=== PATIENT | female | born 1960 | race Caucasian/White ===

== ENCOUNTER 2016-10-28 18:41 | Inpatient (IN) | payer MEDICAID ==
[~2016-10-28] VITALS: Ht 160 cm; Wt 128.4 kg
[~2016-10-28 18:41] MED LIST: ALBU6.7H IH; FLUT1DIS IH
[2016-10-28] MEDS ORDERED: METHYLPREDNISOLONE SOD SUCC 125 MG/2 ML VIAL IV STA (21:16)
[2016-10-28] MEDS ORDERED: ALBUTEROL (0.083%) 2.5MG/3ML NEB HHN STA (21:16)
[2016-10-28] MEDS ORDERED: IPRATROPIUM BROMIDE (0.02%) 0.5MG/2.5ML NEB HHN STA (21:16)
[2016-10-28] MEDS ORDERED: MAGNESIUM 2 G PREMIX 50 ML IV ONE (21:30)
[2016-10-28 21:37] LABS: BASOPHILS % 0.5 % (0.0-2.0); HEMATOCRIT. 32.2 % (36.0-48.0); HEMOGLOBIN. 10.7 g/dL (12.0-16.0); LYMPHOCYTES % 23.8 % (20.0-50.0); MEAN CORPUSCULAR HEMOGLOBIN 26.8 pg (28.0-32.0); MEAN CORPUSCULAR VOLUME 81.1 fL (81.0-99.0); MEAN PLATELET VOLUME 7.8 fl (7.4-10.4); MONOCYTES % 8.7 % (2.0-8.0); PLATELET 217 x1000/uL (130-400); RED BLOOD CELL COUNT 3.98 mill/uL (4.2-5.4); RED CELL DISTRIBUTION WIDTH 14.4 % (11.6-14.6)
[2016-10-28 21:48] LABS: CARBON DIOXIDE 28 mEq/L (21-32); CHLORIDE 110 mEq/L (98-107)
[2016-10-28 21:53] LABS: D-DIMER 0.69 mg/L FEU (<0.50); PROTHROMBIN TIME 10.7 sec
[2016-10-28 21:55] LABS: TROPONIN I < 0.02 ng/mL (0.00-0.04)
[2016-10-28] MEDS ORDERED: NITROGLYCERIN OINT 1GM/INCH UDPKT TD ONE (22:45)
[2016-10-28] MEDS ORDERED: FUROSEMIDE 20MG/2ML VIAL IVP ONE (22:45)
[2016-10-28] MEDS ORDERED: LEVOFLOXACIN 500MG PREMIX 100 ML IV ONE (23:30)
[2016-10-29 09:48] LABS: BASOPHILS % 0.2 % (0.0-2.0); HEMATOCRIT. 32.7 % (36.0-48.0); HEMOGLOBIN. 11.1 g/dL (12.0-16.0); LYMPHOCYTES % 9.5 % (20.0-50.0); MEAN CORPUSCULAR HEMOGLOBIN 27.3 pg (28.0-32.0); MEAN CORPUSCULAR VOLUME 80.2 fL (81.0-99.0); MEAN PLATELET VOLUME 7.7 fl (7.4-10.4); MONOCYTES % 1.2 % (2.0-8.0); NEUTROPHILS % 89.1 % (40.0-76.0); PLATELET 222 x1000/uL (130-400); RED BLOOD CELL COUNT 4.07 mill/uL (4.2-5.4); RED CELL DISTRIBUTION WIDTH 14.3 % (11.6-14.6)
[2016-10-29 10:00] VITALS: BP 138/76
[2016-10-29 10:03] LABS: CARBON DIOXIDE 27 mEq/L (21-32); CHLORIDE 107 mEq/L (98-107); HDL CHOLESTEROL 81 mg/dL (40-59); LDL CHOLESTEROL 104 mg/dL (5-100)
[2016-10-29] MEDS ORDERED: IPRATROPIUM/ALBUTEROL 0.5-3(2.5)MG/3ML NEB INH PRN (10:30)
[2016-10-29] MEDS ORDERED: ONDANSETRON HCL 4MG/2ML VIAL IV PRN (10:30)
[2016-10-29] MEDS ORDERED: CLONIDINE 0.1MG TABLET PO PRN (10:30)
[2016-10-29] MEDS ORDERED: ENOXAPARIN 40MG/0.4ML SYR SUBCUT SCH (10:30)
[2016-10-29] MEDS ORDERED: MAGNESIUM/ALUMINUM HYDROXIDE/SIMETHICONE 30ML UDC PO PRN (10:30)
[2016-10-29] MEDS ORDERED: DOCUSATE SODIUM 100MG CAPSULE PO PRN (10:30)
[2016-10-29] MEDS ORDERED: ASPIRIN 81MG EC TABLET PO ONE (11:00)
[2016-10-29] MEDS ORDERED: PRAV40TA58 PO (11:44)
[2016-10-29] MEDS ORDERED: SITA1TAB8 PO (11:44)
[2016-10-29] MEDS ORDERED: GLIP10TA10 PO (11:44)
[2016-10-29] MEDS ORDERED: MOME13HF2 INH (11:44)
[2016-10-29] MEDS ORDERED: HYDR200T35 PO (11:44)
[2016-10-29] MEDS ORDERED: ASPI-1159 PO (11:44)
[2016-10-29] MEDS ORDERED: MEDICATION NOT ON FORMULARY EA (Mometasone/Formoterol (Dulera 100 Mcg/5 Mcg Inhaler) 2 P INH SCH (11:45)
[2016-10-29 12:03] LABS: CREATINE KINASE 95 IU/L (26-192); TROPONIN I < 0.02 ng/mL (0.00-0.04)
[2016-10-29] MEDS: BLOOD SUGAR DIAGNOSTIC STRIP TEST SCH ×3 (12:04→21:39)
[2016-10-29] MEDS: ASPIRIN 81MG EC TABLET PO SCH (12:06)
[2016-10-29] MEDS: ACETAMINOPHEN 325MG TABLET PO PRN (12:06)
[2016-10-29] MEDS: AMLODIPINE 5MG TABLET PO SCH ×2 (12:06→21:32)
[2016-10-29] MEDS: LISINOPRIL 5MG TABLET PO SCH (12:06)
[2016-10-29] MEDS: ENOXAPARIN 40MG/0.4ML SYR SUBCUT SCH ×2 (12:08→21:32)
[2016-10-29] MEDS: LINAGLIPTIN 5MG TABLET PO SCH (13:01)
[2016-10-29] MEDS: HYDROXYCHLOROQUINE SULFATE 200MG TABLET PO SCH (13:01)
[2016-10-29] MEDS: INSULIN LISPRO 100 UNITS/ML SUBCUT SCH ×3 (13:04→21:00)
[2016-10-29] MEDS: IPRATROPIUM/ALBUTEROL 0.5-3(2.5)MG/3ML NEB INH SCH ×2 (14:32→21:13)
[2016-10-29 15:43] LABS: CREATINE KINASE 95 IU/L (26-192)
[2016-10-29 15:54] VITALS: BP 142/88
[2016-10-29] MEDS: FUROSEMIDE 40MG/4ML VIAL IV SCH (18:07)
[2016-10-29] MEDS: METFORMIN HCL 500MG TABLET PO SCH (18:07)
[2016-10-29] MEDS: GLIPIZIDE 10MG TABLET PO SCH (18:08)
[2016-10-29 20:00] VITALS: BP 122/68
[2016-10-29] MEDS ORDERED: MEDICATION NOT ON FORMULARY EA (Pravastatin Sodium 40 MG) PO SCH (21:00)
[2016-10-29] MEDS: ATORVASTATIN CALCIUM 10MG TABLET PO SCH (21:31)
[2016-10-30] VITALS: BP 108/61
[2016-10-30 00:06] LABS: CREATINE KINASE 157 IU/L (26-192); TROPONIN I < 0.02 ng/mL (0.00-0.04)
[2016-10-30] MEDS: IPRATROPIUM/ALBUTEROL 0.5-3(2.5)MG/3ML NEB INH SCH ×4 (01:01→21:35)
[2016-10-30 04:00] VITALS: BP 106/65
[2016-10-30 04:43] LABS: *AMPHETAMINES SCREEN URINE NEGATIVE (NEGATIVE); *BARBITURATES SCREEN URINE NEGATIVE (NEGATIVE); *BENZODIAZEPINES SCREEN URINE NEGATIVE (NEGATIVE); *COCAINE SCREEN URINE NEGATIVE (NEGATIVE); CANNABINOID URINE SCREEN NEGATIVE (NEGATIVE); METHADONE URINE SCREEN NEGATIVE (NEGATIVE); OPIATES URINE SCREEN NEGATIVE (NEGATIVE); PHENCYCLIDINE URINE SCREEN NEGATIVE (NEGATIVE)
[2016-10-30 05:33] LABS: BASOPHILS % 0.4 % (0.0-2.0); EOSINOPHILS % 0.2 % (0.0-5.0); HEMATOCRIT. 32.4 % (36.0-48.0); HEMOGLOBIN. 10.7 g/dL (12.0-16.0); LYMPHOCYTES % 20.6 % (20.0-50.0); MEAN CORPUSCULAR HEMOGLOBIN 26.9 pg (28.0-32.0); MEAN CORPUSCULAR VOLUME 81.2 fL (81.0-99.0); MEAN PLATELET VOLUME 8.5 fl (7.4-10.4); MONOCYTES % 10.4 % (2.0-8.0); NEUTROPHILS % 68.4 % (40.0-76.0); PLATELET 232 x1000/uL (130-400); RED BLOOD CELL COUNT 3.99 mill/uL (4.2-5.4); RED CELL DISTRIBUTION WIDTH 14.7 % (11.6-14.6)
[2016-10-30 06:05] LABS: CARBON DIOXIDE 26 mEq/L (21-32); CHLORIDE 106 mEq/L (98-107)
[2016-10-30 06:10] LABS: TROPONIN I < 0.02 ng/mL (0.00-0.04)
[2016-10-30] MEDS: BLOOD SUGAR DIAGNOSTIC STRIP TEST SCH ×5 (07:13→20:30)
[2016-10-30] MEDS: INSULIN LISPRO 100 UNITS/ML SUBCUT SCH ×4 (07:15→20:30)
[2016-10-30 08:00] VITALS: BP 112/67
[2016-10-30] MEDS: AMLODIPINE 5MG TABLET PO SCH ×2 (08:13→20:47)
[2016-10-30] MEDS: METFORMIN HCL 500MG TABLET PO SCH ×2 (08:21→19:28)
[2016-10-30] MEDS: GLIPIZIDE 10MG TABLET PO SCH ×2 (08:21→19:28)
[2016-10-30] MEDS: LINAGLIPTIN 5MG TABLET PO SCH (08:21)
[2016-10-30] MEDS: ASPIRIN 81MG EC TABLET PO SCH (08:22)
[2016-10-30] MEDS: LISINOPRIL 5MG TABLET PO SCH (08:22)
[2016-10-30] MEDS: FUROSEMIDE 40MG/4ML VIAL IV SCH (08:22)
[2016-10-30] MEDS: ENOXAPARIN 40MG/0.4ML SYR SUBCUT SCH ×2 (08:24→20:46)
[2016-10-30] MEDS: HYDROXYCHLOROQUINE SULFATE 200MG TABLET PO SCH (08:24)
[2016-10-30] MEDS ORDERED: ASPIRIN 81MG EC TABLET PO SCH (09:00)
[2016-10-30 12:50] VITALS: BP 123/73
[2016-10-30 16:00] VITALS: BP 133/75
[2016-10-30] MEDS ORDERED: POTASSIUM CHLORIDE 20MEQ TABLET SR PO NR (16:00)
[2016-10-30] MEDS: LEVOTHYROXINE SODIUM 25MCG TABLET PO SCH (16:21)
[2016-10-30 20:00] VITALS: BP 135/80
[2016-10-30] MEDS: ATORVASTATIN CALCIUM 10MG TABLET PO SCH (20:47)
[2016-10-31] VITALS (7 sets, daily range): BP systolic 98–160; BP diastolic 54–108
[2016-10-31] MEDS: IPRATROPIUM/ALBUTEROL 0.5-3(2.5)MG/3ML NEB INH SCH ×4 (03:12→20:59)
[2016-10-31] MEDS: ACETAMINOPHEN 325MG TABLET PO PRN (03:18)
[2016-10-31] MEDS ORDERED: POTASSIUM CHLORIDE 20MEQ TABLET SR PO NR (06:00)
[2016-10-31] MEDS: LEVOTHYROXINE SODIUM 25MCG TABLET PO SCH (06:02)
[2016-10-31] MEDS: BLOOD SUGAR DIAGNOSTIC STRIP TEST SCH ×4 (06:03→20:27)
[2016-10-31] MEDS: INSULIN LISPRO 100 UNITS/ML SUBCUT SCH ×4 (06:03→20:27)
[2016-10-31] MEDS: DEXTROSE 50% WATER 50ML SYRINGE IV PRN (06:03)
[2016-10-31 06:05] LABS: BASOPHILS % 0.6 % (0.0-2.0); EOSINOPHILS % 1.4 % (0.0-5.0); HEMATOCRIT. 32.9 % (36.0-48.0); HEMOGLOBIN. 10.9 g/dL (12.0-16.0); LYMPHOCYTES % 35.1 % (20.0-50.0); MEAN CORPUSCULAR HEMOGLOBIN 26.7 pg (28.0-32.0); MEAN CORPUSCULAR VOLUME 80.9 fL (81.0-99.0); MEAN PLATELET VOLUME 8.1 fl (7.4-10.4); MONOCYTES % 12.7 % (2.0-8.0); NEUTROPHILS % 50.2 % (40.0-76.0); PLATELET 234 x1000/uL (130-400); RED BLOOD CELL COUNT 4.07 mill/uL (4.2-5.4); RED CELL DISTRIBUTION WIDTH 14.5 % (11.6-14.6)
[2016-10-31 06:34] LABS: CARBON DIOXIDE 27 mEq/L (21-32); CHLORIDE 108 mEq/L (98-107)
[2016-10-31 06:35] LABS: T4 FREE 1.05 ng/dL (0.76-1.46)
[2016-10-31] MEDS: METFORMIN HCL 500MG TABLET PO SCH ×2 (08:18→18:12)
[2016-10-31] MEDS: LINAGLIPTIN 5MG TABLET PO SCH (08:19)
[2016-10-31] MEDS: AMLODIPINE 5MG TABLET PO SCH ×2 (08:31→20:27)
[2016-10-31] MEDS: ASPIRIN 81MG EC TABLET PO SCH (08:31)
[2016-10-31] MEDS: LISINOPRIL 5MG TABLET PO SCH (08:31)
[2016-10-31] MEDS: GLIPIZIDE 10MG TABLET PO SCH (08:31)
[2016-10-31] MEDS: HYDROXYCHLOROQUINE SULFATE 200MG TABLET PO SCH (08:31)
[2016-10-31] MEDS: ENOXAPARIN 40MG/0.4ML SYR SUBCUT SCH ×2 (08:32→20:32)
[2016-10-31] MEDS ORDERED: REGADENOSON 0.4 MG/5 ML IV ONE (13:45)
[2016-10-31] MEDS: GLIPIZIDE 5MG TABLET PO SCH (18:11)
[2016-10-31] MEDS: ATORVASTATIN CALCIUM 10MG TABLET PO SCH (20:32)
[2016-11-01] VITALS: BP 103/59
[2016-11-01] MEDS: IPRATROPIUM/ALBUTEROL 0.5-3(2.5)MG/3ML NEB INH SCH ×3 (02:33→14:26)
[2016-11-01 04:00] VITALS: BP 103/58
[2016-11-01] MEDS: DEXTROSE 50% WATER 50ML SYRINGE IV PRN (06:02)
[2016-11-01] MEDS: BLOOD SUGAR DIAGNOSTIC STRIP TEST SCH ×3 (06:03→16:30)
[2016-11-01] MEDS: GLIPIZIDE 5MG TABLET PO SCH (06:03)
[2016-11-01] MEDS: LEVOTHYROXINE SODIUM 25MCG TABLET PO SCH (06:03)
[2016-11-01] MEDS: INSULIN LISPRO 100 UNITS/ML SUBCUT SCH ×3 (06:07→16:30)
[2016-11-01] MEDS: METFORMIN HCL 500MG TABLET PO SCH ×2 (07:15→17:22)
[2016-11-01 08:00] VITALS: BP 144/77
[2016-11-01] MEDS ORDERED: REGADENOSON 0.4 MG/5 ML IV ONE (08:35)
[2016-11-01] MEDS: LINAGLIPTIN 5MG TABLET PO SCH (09:00)
[2016-11-01] MEDS: ENOXAPARIN 40MG/0.4ML SYR SUBCUT SCH (11:19)
[2016-11-01] MEDS: AMLODIPINE 5MG TABLET PO SCH (11:19)
[2016-11-01] MEDS: HYDROXYCHLOROQUINE SULFATE 200MG TABLET PO SCH (11:19)
[2016-11-01] MEDS: ASPIRIN 81MG EC TABLET PO SCH (11:19)
[2016-11-01 12:00] VITALS: BP 141/74
[2016-11-01] MEDS ORDERED: AMLO5TAB88 PO (12:22)
[2016-11-01 16:00] VITALS: BP 120/71
[2016-11-01 16:58] VITALS: BP 120/71
[2016-11-02 07:22] LABS: COMPLEMENT C3 38 mg/dL (82-167)
== END 2016-11-01 18:00 | disposition home or self-care (01) | DRG 141 ==
LOC: ER 21:08 → 5WST 23:26 → EDBEDREQ 23:28 → EDBEDREQTM 23:28 → EDBEDREQ 10-29 05:17 → ENRESERV 10-29 09:14
PROVIDERS: ADMIT Internal Medicine; ATTEND Internal Medicine
DX: J45.901 Unspecified asthma with (acute) exacerbation (principal); I27.2 Other secondary pulmonary hypertension; I11.0 Hypertensive heart disease with heart failure; M32.9 Systemic lupus erythematosus, unspecified; Z68.43 Body mass index [BMI] 50.0-59.9, adult; I50.9 Heart failure, unspecified; E11.9 Type 2 diabetes mellitus without complications; E66.01 Morbid (severe) obesity due to excess calories; H53.8 Other visual disturbances; D64.9 Anemia, unspecified; E03.9 Hypothyroidism, unspecified; E78.00 Pure hypercholesterolemia, unspecified; E78.5 Hyperlipidemia, unspecified; J98.11 Atelectasis; K59.00 Constipation, unspecified; Z79.84 Long term (current) use of oral hypoglycemic drugs; Z80.3 Family history of malignant neoplasm of breast; Z82.49 Family history of ischemic heart disease and other diseases of the circulatory system; Z79.899 Other long term (current) drug therapy; Z98.51 Tubal ligation status
CPT/HCPCS: 36415; 71010; 78452; 78582; 80048; 80053; 80061; 80305; 82550; 82553; 82962; 83036; 83605; 83690; 83735; 83880; 84439; 84443; 84484; 85025; 85379; 85610; 85651; 86160; 86376; 87040; 93005; 93017; 93306; 93970; 94640; 94664; 96365; 96367; 96375; 97162; 99285; A9500; A9558; J1650; J1815; J1940; J1956; J2785; J2930; J3475; J7611; J7620

== ENCOUNTER 2017-12-19 22:04 | Emergency (ER) | payer MEDICAID ==
[~2017-12-19] VITALS: Ht 167.6 cm; Wt 127.0 kg
[~2017-12-19 22:04] MED LIST changes: +AMLO5TAB88 PO; +ASPI-1159 PO; +GLIP10TA10 PO; +HYDR200T35 PO; +MOME13HF2 INH; +PRAV40TA58 PO; +SITA1TAB8 PO
[2017-12-20] MEDS ORDERED: HYDROCODONE/ACETAMINOPHEN 5/325MG TABLET PO ONE (00:30)
[2017-12-20 02:20] VITALS: BP 120/82
== END 2017-12-20 02:26 | disposition home or self-care (01) ==
LOC: ER 22:04
DX: S52.592A Other fractures of lower end of left radius, initial encounter for closed fracture (principal); W01.0XXA Fall on same level from slipping, tripping and stumbling without subsequent striking against object, initial encounter; Y93.89 Activity, other specified; Y92.89 Other specified places as the place of occurrence of the external cause; Y99.8 Other external cause status; Z90.710 Acquired absence of both cervix and uterus; Z90.49 Acquired absence of other specified parts of digestive tract; Z79.82 Long term (current) use of aspirin; Z79.899 Other long term (current) drug therapy
CPT/HCPCS: 29125; 73090; 73110; 73130; 99284; A4565

== ENCOUNTER 2018-03-25 12:44 | Inpatient (IN) | payer MEDICAID ==
[~2018-03-25] VITALS: Ht 160 cm; Wt 122.5 kg
[2018-03-25] MEDS ORDERED: ALBUTEROL (0.083%) 2.5MG/3ML NEB HHN STA (13:33)
[2018-03-25 14:07] LABS: BASOPHILS % 0.5 % (0.0-2.0); EOSINOPHILS % 0.6 % (0.0-5.0); HEMATOCRIT. 41.6 % (36.0-48.0); HEMOGLOBIN. 13.9 g/dL (12.0-16.0); LYMPHOCYTES % 25.7 % (20.0-50.0); MEAN CORPUSCULAR HEMOGLOBIN 27.4 pg (28.0-32.0); MEAN CORPUSCULAR VOLUME 81.9 fL (81.0-99.0); MEAN PLATELET VOLUME 7.7 fl (7.4-10.4); MONOCYTES % 7.8 % (2.0-8.0); NEUTROPHILS % 65.4 % (40.0-76.0); PLATELET 258 x1000/uL (130-400); RED BLOOD CELL COUNT 5.08 mill/uL (4.2-5.4); RED CELL DISTRIBUTION WIDTH 14.5 % (11.6-14.6)
[2018-03-25 14:13] LABS: CHLORIDE 103 mEq/L (98-107)
[2018-03-25] MEDS ORDERED: METHYLPREDNISOLONE SOD SUCC 125 MG/2 ML VIAL IV ONE (14:45)
[2018-03-25] MEDS ORDERED: DOCUSATE SODIUM 100MG CAPSULE PO PRN (18:30)
[2018-03-25] MEDS ORDERED: BUDESONIDE 0.5MG/2ML NEB HHN SCH (18:30)
[2018-03-25] MEDS ORDERED: IPRATROPIUM/ALBUTEROL 0.5-3(2.5)MG/3ML NEB INH SCH (18:30)
[2018-03-25] MEDS ORDERED: CLONIDINE 0.1MG TABLET PO PRN (18:30)
[2018-03-25] MEDS ORDERED: MAGNESIUM/ALUMINUM HYDROXIDE/SIMETHICONE 30ML UDC PO PRN (18:30)
[2018-03-25] MEDS ORDERED: ACETAMINOPHEN 325MG TABLET PO PRN (18:30)
[2018-03-25] MEDS ORDERED: ONDANSETRON HCL 4MG/2ML INJ IV PRN (18:30)
[2018-03-25] MEDS ORDERED: IPRATROPIUM/ALBUTEROL 0.5-3(2.5)MG/3ML NEB INH PRN (18:30)
[2018-03-25] MEDS ORDERED: GUAIFENESIN 200MG/10ML SUGAR FREE UDC PO PRN (18:30)
[2018-03-25] MEDS ORDERED: PANTOPRAZOLE 40MG DR TABLET PO SCH (21:00)
[2018-03-25] MEDS ORDERED: INSU100I24 SQ (21:39)
[2018-03-25] MEDS ORDERED: CHOL200010 MT (21:39)
[2018-03-25] MEDS ORDERED: OSEL75CA17 PO (21:39)
[2018-03-25] MEDS ORDERED: ALBU18HF2 IH (21:39)
[2018-03-25 21:42] VITALS: BP 165/79
[2018-03-25 21:44] VITALS: BP 165/79
[2018-03-25] MEDS ORDERED: DEXTROSE 50% WATER 50ML SYRINGE IV PRN (21:45)
[2018-03-25 22:02] LABS: BG BASE EXCESS -6.1 mmol/L (-2.0-2.0); BG CARBOXYHEMOGLOBIN 0.4 % (0.5-1.5); BG FRACTION INSPIRED OXYGEN 28; BG HCO3 ACT 16.7 mmol/L (22.0-26.0); BG METHEMOGLOBIN 0.2 % (0.0-1.5); BG OXYHEMOGLOBIN 94.4 % (94.0-97.0); BG PH 7.425 (7.350-7.450); BG PO2 79.4 mmHg (75.0-100.0); BG SAMPLE SITE RIGHT RADIAL; BG TOTAL HEMOGLOBIN 13.4 g/dL (12.0-18.0); BG VENT MODE NASAL CANNULA
[2018-03-25] MEDS: METHYLPREDNISOLONE SOD SUCC 40 MG/ML VIAL IV SCH (22:03)
[2018-03-25] MEDS: ENOXAPARIN 30MG/0.3ML SYR SUBCUT SCH (22:03)
[2018-03-25] MEDS: BLOOD SUGAR DIAGNOSTIC STRIP TEST SCH (22:04)
[2018-03-25] MEDS: INSULIN LISPRO 100 UNITS/ML SUBCUT SCH (22:04)
[2018-03-25 23:11] LABS: CHLORIDE 104 mEq/L (98-107)
[2018-03-25 23:21] LABS: CREATINE KINASE 68 IU/L (26-192)
[2018-03-25 23:23] LABS: CREATINE KINASE MB FRACTION < 1.0 ng/mL (0.5-3.6)
[2018-03-26] VITALS: BP 123/47
[2018-03-26] MEDS: IPRATROPIUM/ALBUTEROL 0.5-3(2.5)MG/3ML NEB INH SCH ×6 (00:20→20:59)
[2018-03-26] MEDS: BUDESONIDE 0.5MG/2ML NEB HHN SCH ×2 (00:20→16:00)
[2018-03-26 04:00] VITALS: BP 147/76
[2018-03-26 06:41] LABS: BASOPHILS % 0.4 % (0.0-2.0); HEMATOCRIT. 38.8 % (36.0-48.0); HEMOGLOBIN. 12.9 g/dL (12.0-16.0); LYMPHOCYTES % 27.7 % (20.0-50.0); MEAN CORPUSCULAR HEMOGLOBIN 27.4 pg (28.0-32.0); MEAN CORPUSCULAR VOLUME 82.2 fL (81.0-99.0); NEUTROPHILS % 66.9 % (40.0-76.0); PLATELET 251 x1000/uL (130-400); RED BLOOD CELL COUNT 4.72 mill/uL (4.2-5.4); RED CELL DISTRIBUTION WIDTH 14.5 % (11.6-14.6)
[2018-03-26] MEDS: METHYLPREDNISOLONE SOD SUCC 40 MG/ML VIAL IV SCH ×3 (06:51→20:37)
[2018-03-26 07:24] LABS: LDL CHOLESTEROL 109 mg/dL (5-100)
[2018-03-26 07:26] LABS: CREATINE KINASE 59 IU/L (26-192); HDL CHOLESTEROL 67 mg/dL (40-59)
[2018-03-26 07:27] LABS: CREATINE KINASE MB FRACTION < 1.0 ng/mL (0.5-3.6)
[2018-03-26] MEDS: BLOOD SUGAR DIAGNOSTIC STRIP TEST SCH ×4 (07:39→20:37)
[2018-03-26] MEDS: PANTOPRAZOLE 40MG DR TABLET PO SCH (07:39)
[2018-03-26] MEDS: INSULIN LISPRO 100 UNITS/ML SUBCUT SCH ×4 (07:40→20:44)
[2018-03-26 07:45] VITALS: BP 135/75
[2018-03-26 08:40] LABS: CLARITY URINE CLEAR (CLEAR); COLOR URINE DARK YELLOW (YELLOW); KETONES URINE 1+ (NEGATIVE); LEUKOCYTE ESTERASE URINE NEGATIVE (NEGATIVE); NITRITE URINE NEGATIVE (NEGATIVE); OCCULT BLOOD URINE NEGATIVE (NEGATIVE); PROTEIN URINE TRACE (NEGATIVE); SPECIFIC GRAVITY URINE 1.047 (1.005-1.030)
[2018-03-26] MEDS: ENOXAPARIN 30MG/0.3ML SYR SUBCUT SCH ×2 (08:52→20:37)
[2018-03-26 09:16] LABS: *AMPHETAMINES SCREEN URINE NEGATIVE (NEGATIVE); *BENZODIAZEPINES SCREEN URINE NEGATIVE (NEGATIVE); *COCAINE SCREEN URINE NEGATIVE (NEGATIVE); METHADONE URINE SCREEN NEGATIVE (NEGATIVE)
[2018-03-26 09:17] LABS: CANNABINOID URINE SCREEN NEGATIVE (NEGATIVE); OPIATES URINE SCREEN NEGATIVE (NEGATIVE); PHENCYCLIDINE URINE SCREEN NEGATIVE (NEGATIVE)
[2018-03-26 09:25] LABS: *BARBITURATES SCREEN URINE NEGATIVE (NEGATIVE)
[2018-03-26] MEDS ORDERED: INSULIN GLARGINE UD 100 UNITS/ML SYR SUBCUT SCH ×2 (11:00→22:00)
[2018-03-26] MEDS: AZITHROMYCIN 500 MG in DEXT 5% WATER 250 ML IV SCH (11:05)
[2018-03-26 11:49] VITALS: BP 126/72
[2018-03-26 15:38] VITALS: BP 163/74
[2018-03-26 19:45] VITALS: BP 140/80
[2018-03-26] MEDS: MONTELUKAST SODIUM 10MG TABLET PO SCH (20:37)
[2018-03-26] MEDS: AMLODIPINE 5MG TABLET PO SCH (21:54)
[2018-03-27 00:10] VITALS: BP 129/71
[2018-03-27] MEDS: IPRATROPIUM/ALBUTEROL 0.5-3(2.5)MG/3ML NEB INH SCH ×6 (01:30→20:47)
[2018-03-27 04:00] VITALS: BP 125/69
[2018-03-27] MEDS: BUDESONIDE 0.5MG/2ML NEB HHN SCH ×3 (05:30→20:47)
[2018-03-27] MEDS: METHYLPREDNISOLONE SOD SUCC 40 MG/ML VIAL IV SCH ×2 (05:47→19:06)
[2018-03-27] MEDS: BLOOD SUGAR DIAGNOSTIC STRIP TEST SCH ×2 (07:40→21:10)
[2018-03-27] MEDS ORDERED: GLIPIZIDE 5MG XL TABLET PO SCH (08:10)
[2018-03-27 08:14] VITALS: BP 112/49
[2018-03-27] MEDS: PANTOPRAZOLE 40MG DR TABLET PO SCH (09:00)
[2018-03-27] MEDS: AMLODIPINE 5MG TABLET PO SCH (09:01)
[2018-03-27] MEDS: ENOXAPARIN 30MG/0.3ML SYR SUBCUT SCH ×2 (09:02→21:19)
[2018-03-27] MEDS: INSULIN LISPRO 100 UNITS/ML SUBCUT SCH ×4 (09:05→21:18)
[2018-03-27] MEDS ORDERED: INSULIN GLARGINE UD 100 UNITS/ML SYR SUBCUT SCH (11:00)
[2018-03-27] MEDS: AZITHROMYCIN 500 MG in DEXT 5% WATER 250 ML IV SCH (11:36)
[2018-03-27 12:43] VITALS: BP 109/80
[2018-03-27 17:15] VITALS: BP 109/44
[2018-03-27 20:00] VITALS: BP 123/66
[2018-03-27] MEDS: INSULIN GLARGINE UD 100 UNITS/ML SYR SUBCUT SCH (21:18)
[2018-03-27] MEDS: GUAIFENESIN 600MG ER TABLET PO SCH (21:19)
[2018-03-27] MEDS: MONTELUKAST SODIUM 10MG TABLET PO SCH (21:19)
[2018-03-27] MEDS: FAMOTIDINE 20MG TABLET PO SCH (21:19)
[2018-03-28] VITALS: BP 132/78
[2018-03-28] MEDS: IPRATROPIUM/ALBUTEROL 0.5-3(2.5)MG/3ML NEB INH SCH ×5 (00:42→17:15)
[2018-03-28 04:00] VITALS: BP 128/68
[2018-03-28] MEDS: METHYLPREDNISOLONE SOD SUCC 40 MG/ML VIAL IV SCH (06:24)
[2018-03-28] MEDS: BLOOD SUGAR DIAGNOSTIC STRIP TEST SCH ×2 (06:24→12:40)
[2018-03-28 08:00] VITALS: BP 122/65
[2018-03-28] MEDS ORDERED: GLIPIZIDE 5MG XL TABLET PO SCH (08:10)
[2018-03-28 08:15] LABS: BG BASE EXCESS 1.9 mmol/L (-2.0-2.0); BG CARBOXYHEMOGLOBIN 0.8 % (0.5-1.5); BG DEOXYHEMOGLOBIN 2.6 % (0.0-5.0); BG FRACTION INSPIRED OXYGEN 28; BG HCO3 ACT 26.6 mmol/L (22.0-26.0); BG METHEMOGLOBIN 0.2 % (0.0-1.5); BG OXYGEN SATURATION 97.4 % (92.0-98.5); BG OXYHEMOGLOBIN 96.4 % (94.0-97.0); BG PCO2 41.9 mmHg (35.0-45.0); BG SAMPLE SITE RIGHT RADIAL; BG TOTAL HEMOGLOBIN 13.4 g/dL (12.0-18.0); BG VENT MODE NASAL CANNULA
[2018-03-28] MEDS: BUDESONIDE 0.5MG/2ML NEB HHN SCH (08:38)
[2018-03-28] MEDS: FAMOTIDINE 20MG TABLET PO SCH (10:11)
[2018-03-28] MEDS: LORATADINE 10MG TABLET PO SCH ×2 (10:12→10:17)
[2018-03-28] MEDS: AMLODIPINE 5MG TABLET PO SCH (10:12)
[2018-03-28] MEDS: GUAIFENESIN 600MG ER TABLET PO SCH (10:13)
[2018-03-28] MEDS: ENOXAPARIN 30MG/0.3ML SYR SUBCUT SCH (10:13)
[2018-03-28] MEDS: INSULIN LISPRO 100 UNITS/ML SUBCUT SCH ×2 (10:15→14:02)
[2018-03-28 12:00] VITALS: BP 128/67
[2018-03-28] MEDS: AZITHROMYCIN 500 MG in DEXT 5% WATER 250 ML IV SCH (12:19)
[2018-03-28] MEDS: INSULIN GLARGINE UD 100 UNITS/ML SYR SUBCUT SCH (12:21)
[2018-03-28] MEDS ORDERED: INSULIN LISPRO 100 UNITS/ML SUBCUT NR (12:30)
[2018-03-28] MEDS ORDERED: FLUCONAZOLE 100MG TABLET PO SCH (15:45)
[2018-03-28 16:00] VITALS: BP 128/70
[2018-03-28 16:22] VITALS: BP 128/70
[2018-03-28] MEDS ORDERED: INSULIN LISPRO 100 UNITS/ML SUBCUT SCH (17:40)
[2018-03-29] MEDS ORDERED: METFORMIN HCL 500MG TABLET PO SCH (08:10)
[2018-03-29] MEDS ORDERED: AZITHROMYCIN 500 MG TABLET PO SCH (09:00)
[2018-03-29] MEDS ORDERED: GLIPIZIDE 5MG XL TABLET PO SCH (09:00)
== END 2018-03-28 16:20 | disposition home or self-care (01) | DRG 133 ==
LOC: ER 12:44 → 7WST 15:00 → EDBEDREQ 15:03 → ENRESERV 19:40
PROVIDERS: ADMIT Internal Medicine; ATTEND Internal Medicine
DX: J96.00 Acute respiratory failure, unspecified whether with hypoxia or hypercapnia (principal); J18.9 Pneumonia, unspecified organism; M32.9 Systemic lupus erythematosus, unspecified; E11.65 Type 2 diabetes mellitus with hyperglycemia; E66.2 Morbid (severe) obesity with alveolar hypoventilation; J44.0 Chronic obstructive pulmonary disease with (acute) lower respiratory infection; I10 Essential (primary) hypertension; E78.5 Hyperlipidemia, unspecified; E78.00 Pure hypercholesterolemia, unspecified; J45.41 Moderate persistent asthma with (acute) exacerbation; Z68.42 Body mass index [BMI] 45.0-49.9, adult; Z87.81 Personal history of (healed) traumatic fracture
CPT/HCPCS: 36415; 36600; 71045; 73110; 80048; 80061; 80305; 82375; 82550; 82553; 82805; 82962; 83036; 83735; 83880; 84443; 84484; 85379; 87070; 87107; 93005; 93970; 96374; 99291; J0456; J1650; J1815; J2920; J2930; J7050; J7060; J7611; J7620; J7626

== ENCOUNTER 2020-10-16 14:04 | Inpatient (IN) | payer MEDICAID ==
[~2020-10-16] VITALS: Ht 157.5 cm; Wt 133.4 kg
[~2020-10-16 14:04] MED LIST changes: +ALBU18HF2 IH; -ALBU6.7H IH; -AMLO5TAB88 PO; -ASPI-1159 PO; +ASPI-1497 PO; +CHOL200010 MT; -FLUT1DIS IH; -GLIP10TA10 PO; +INSU100I24 SQ
[2020-10-16 15:24] LABS: BASOPHILS % 0.9 % (0.0-2.0); EOSINOPHILS % 1.1 % (0.0-5.0); HEMATOCRIT. 34.5 % (36.0-48.0); HEMOGLOBIN. 11.9 g/dL (12.0-16.0); LYMPHOCYTES % 19.2 % (20.0-50.0); MEAN CORPUSCULAR HEMOGLOBIN 26.8 pg (28.0-32.0); MEAN CORPUSCULAR VOLUME 77.6 fL (81.0-99.0); MEAN PLATELET VOLUME 7.9 fl (7.4-10.4); MONOCYTES % 10.3 % (2.0-8.0); NEUTROPHILS % 68.5 % (40.0-76.0); PLATELET 260 x1000/uL (130-400); RED BLOOD CELL COUNT 4.45 mill/uL (4.2-5.4); RED CELL DISTRIBUTION WIDTH 14.8 % (11.6-14.6)
[2020-10-16 15:30] LABS: CHLORIDE 106 mEq/L (98-107)
[2020-10-16 15:32] LABS: D-DIMER 0.96 mg/L FEU (<0.50); PROTHROMBIN TIME 10.5 sec (9.6-11.0)
[2020-10-16] MEDS ORDERED: CEFTRIAXONE 1 G PREMIX 50 ML IV ONE (16:30)
[2020-10-16] MEDS ORDERED: HYDROCODONE/ACETAMINOPHEN 5/325MG TABLET PO ONE (16:30)
[2020-10-16] MEDS ORDERED: SODIUM CHLORIDE 0.9% 1,000 ML IV ONE ×2 (16:30→17:45)
[2020-10-16 17:47] LABS: CLARITY URINE CLEAR (CLEAR); COLOR URINE YELLOW (YELLOW); KETONES URINE TRACE (NEGATIVE); LEUKOCYTE ESTERASE URINE NEGATIVE (NEGATIVE); NITRITE URINE NEGATIVE (NEGATIVE); OCCULT BLOOD URINE NEGATIVE (NEGATIVE); PROTEIN URINE NEGATIVE (NEGATIVE); SPECIFIC GRAVITY URINE 1.027 (1.005-1.030)
[2020-10-16] MEDS ORDERED: CEFTRIAXONE 1 G PREMIX 50 ML IV SCH (19:30)
[2020-10-16] MEDS ORDERED: IPRATROPIUM/ALBUTEROL 0.5-3(2.5)MG/3ML NEB HHN PRN (19:30)
[2020-10-16] MEDS ORDERED: ONDANSETRON HCL 4MG/2ML INJ IV PRN (19:30)
[2020-10-16] MEDS ORDERED: CLONIDINE 0.1MG TABLET PO PRN (19:30)
[2020-10-16] MEDS ORDERED: DIPHENHYDRAMINE 50MG/ML VIAL IV PRN (19:30)
[2020-10-17] MEDS: ACETAMINOPHEN 325MG TABLET PO PRN ×2 (00:58→05:34)
[2020-10-17 01:29] VITALS: BP 132/75
[2020-10-17] MEDS ORDERED: DEXTROSE 50% WATER 50ML SYRINGE IV PRN (01:30)
[2020-10-17] MEDS ORDERED: *PATIENT'S OWN MEDICATION STORAGE XX SCH (02:45)
[2020-10-17] MEDS ORDERED: IBUP-2030 PO (03:47)
[2020-10-17] MEDS ORDERED: BENA5TAB6 PO (03:47)
[2020-10-17] MEDS ORDERED: ALEN70TA79 PO (03:47)
[2020-10-17] MEDS ORDERED: OMEP20TA2 PO (03:47)
[2020-10-17] MEDS: BLOOD SUGAR DIAGNOSTIC STRIP TEST SCH ×4 (06:27→20:34)
[2020-10-17] MEDS: INSULIN LISPRO 100 UNITS/ML SUBCUT SCH ×4 (06:27→20:34)
[2020-10-17 07:23] LABS: BASOPHILS % 0.7 % (0.0-2.0); EOSINOPHILS % 1.3 % (0.0-5.0); HEMATOCRIT. 32.5 % (36.0-48.0); HEMOGLOBIN. 11.1 g/dL (12.0-16.0); LYMPHOCYTES % 33.8 % (20.0-50.0); MEAN CORPUSCULAR HEMOGLOBIN 26.7 pg (28.0-32.0); MEAN CORPUSCULAR VOLUME 78.5 fL (81.0-99.0); NEUTROPHILS % 53.2 % (40.0-76.0); PLATELET 236 x1000/uL (130-400); RED BLOOD CELL COUNT 4.14 mill/uL (4.2-5.4); RED CELL DISTRIBUTION WIDTH 14.8 % (11.6-14.6)
[2020-10-17 07:30] LABS: CHLORIDE 108 mEq/L (98-107)
[2020-10-17 07:42] LABS: LDL CHOLESTEROL 107 mg/dL (5-100)
[2020-10-17 07:43] LABS: HDL CHOLESTEROL 43 mg/dL (40-59)
[2020-10-17 08:00] VITALS: BP 114/63
[2020-10-17] MEDS ORDERED: PNEUMOCOCCAL 23-VAL P-SAC VAC 0.5 ML IM ONE (08:00)
[2020-10-17] MEDS ORDERED: MORPHINE SULFATE 2 MG/ML CPJ (NOT FOR IM USE) IV PRN (11:30)
[2020-10-17 12:00] VITALS: BP 124/68
[2020-10-17 16:00] VITALS: BP 118/53
[2020-10-17] MEDS: CEFTRIAXONE 1,000 MG in DEXTROSE 5% WATER 50 ML IV SCH (17:27)
[2020-10-17 18:00] VITALS: BP 120/60
[2020-10-17] MEDS ORDERED: POTASSIUM CHLORIDE 20MEQ/PACKET PO NR (18:00)
[2020-10-17 20:00] VITALS: BP 111/59
[2020-10-17 21:29] LABS: T4 FREE 1.05 ng/dL (0.76-1.46)
[2020-10-18] VITALS: BP 108/54
[2020-10-18 04:00] VITALS: BP 108/56
[2020-10-18] MEDS: INSULIN LISPRO 100 UNITS/ML SUBCUT SCH ×4 (06:12→20:47)
[2020-10-18] MEDS: BLOOD SUGAR DIAGNOSTIC STRIP TEST SCH ×4 (06:14→20:47)
[2020-10-18 08:00] VITALS: BP 102/62
[2020-10-18] MEDS: ACETAMINOPHEN 325MG TABLET PO PRN ×2 (10:44→19:31)
[2020-10-18 12:00] VITALS: BP 120/71
[2020-10-18] MEDS ORDERED: HYDROCODONE/ACETAMINOPHEN 5/325MG TABLET PO PRN (14:45)
[2020-10-18 16:00] VITALS: BP 144/82
[2020-10-18] MEDS: CEFTRIAXONE 1,000 MG in DEXTROSE 5% WATER 50 ML IV SCH (16:35)
[2020-10-18 20:00] VITALS: BP 126/74
[2020-10-19] VITALS: BP 122/61
[2020-10-19 04:00] VITALS: BP 121/59
[2020-10-19] MEDS: BLOOD SUGAR DIAGNOSTIC STRIP TEST SCH ×3 (06:21→17:36)
[2020-10-19] MEDS: INSULIN LISPRO 100 UNITS/ML SUBCUT SCH ×2 (06:22→13:15)
[2020-10-19 06:41] LABS: BASOPHILS % 1.1 % (0.0-2.0); EOSINOPHILS % 1.6 % (0.0-5.0); HEMATOCRIT. 35.1 % (36.0-48.0); HEMOGLOBIN. 11.8 g/dL (12.0-16.0); LYMPHOCYTES % 31.7 % (20.0-50.0); MEAN CORPUSCULAR HEMOGLOBIN 26.6 pg (28.0-32.0); MEAN PLATELET VOLUME 8.1 fl (7.4-10.4); MONOCYTES % 9.9 % (2.0-8.0); NEUTROPHILS % 55.7 % (40.0-76.0); PLATELET 326 x1000/uL (130-400); RED BLOOD CELL COUNT 4.44 mill/uL (4.2-5.4)
[2020-10-19 08:00] VITALS: BP 136/76
[2020-10-19 08:34] LABS: CHLORIDE 109 mEq/L (98-107)
[2020-10-19 12:00] VITALS: BP 116/63
[2020-10-19] MEDS ORDERED: CEPH500C2 MT (12:15)
[2020-10-19] MEDS: CEFTRIAXONE 1,000 MG in DEXTROSE 5% WATER 50 ML IV SCH (16:27)
[2020-10-19 17:11] VITALS: BP 116/63
== END 2020-10-19 18:50 | disposition home or self-care (01) | DRG 383 ==
LOC: ER 14:04 → ENRESERV 23:39 → 8WST 23:53
PROVIDERS: ADMIT Internal Medicine; ATTEND Internal Medicine
DX: L03.115 Cellulitis of right lower limb (principal); E11.51 Type 2 diabetes mellitus with diabetic peripheral angiopathy without gangrene; L03.116 Cellulitis of left lower limb; E78.5 Hyperlipidemia, unspecified; E78.00 Pure hypercholesterolemia, unspecified; J45.909 Unspecified asthma, uncomplicated; M81.0 Age-related osteoporosis without current pathological fracture; M17.11 Unilateral primary osteoarthritis, right knee; Z79.4 Long term (current) use of insulin; Z79.82 Long term (current) use of aspirin; Z79.899 Other long term (current) drug therapy; Z79.51 Long term (current) use of inhaled steroids
CPT/HCPCS: 36415; 71045; 73560; 80048; 80053; 80061; 81003; 82962; 83036; 83605; 84145; 84439; 84443; 84481; 84484; 85025; 85379; 86850; 86900; 90732; 93005; 93970; 97161; 99291; J0696; J1815; J2270; J7030; J7040; J7060

== ENCOUNTER 2021-08-14 09:10 | Emergency (ER) | payer MEDICAID ==
[~2021-08-14] VITALS: Ht 165.1 cm; Wt 116.0 kg
[~2021-08-14 09:10] MED LIST changes: +ALEN70TA79 PO; +BENA5TAB6 PO; +CEPH500C2 MT; +IBUP-2030 PO; +OMEP20TA2 PO
[2021-08-14 09:22] VITALS: BP 147/65
[2021-08-14] MEDS ORDERED: MECLIZINE 25MG TABLET PO ONE (10:45)
[2021-08-14 12:13] LABS: CHLORIDE 108 mEq/L (98-107)
[2021-08-14 12:19] LABS: BASOPHILS % 0.7 % (0.0-2.0); EOSINOPHILS % 0.7 % (0.0-5.0); HEMATOCRIT. 39.6 % (36.0-48.0); LYMPHOCYTES % 27.4 % (20.0-50.0); MEAN CORPUSCULAR HEMOGLOBIN 26.8 pg (28.0-32.0); MEAN CORPUSCULAR VOLUME 81.3 fL (81.0-99.0); MEAN PLATELET VOLUME 7.8 fl (7.4-10.4); MONOCYTES % 7.2 % (2.0-8.0); PLATELET 314 x1000/uL (130-400); RED BLOOD CELL COUNT 4.87 mill/uL (4.2-5.4); RED CELL DISTRIBUTION WIDTH 14.5 % (11.6-14.6)
[2021-08-14] MEDS ORDERED: MECLIZINE 25MG TABLET PO NR (12:45)
[2021-08-14] MEDS ORDERED: MECL-159 MT (13:02)
== END 2021-08-14 13:23 | disposition home or self-care (01) ==
LOC: ER 09:54
DX: R42 Dizziness and giddiness (principal); R51.9 Headache, unspecified; J45.909 Unspecified asthma, uncomplicated; E11.9 Type 2 diabetes mellitus without complications; E78.00 Pure hypercholesterolemia, unspecified; Z79.899 Other long term (current) drug therapy
CPT/HCPCS: 36415; 71045; 80053; 84484; 85025; 93005; 99285; J8597

== ENCOUNTER 2023-06-16 13:36 | Emergency (ER) | payer MEDICAID ==
[~2023-06-16] VITALS: Ht 167.6 cm; Wt 114.0 kg
[~2023-06-16 13:36] MED LIST changes: +BENA5TAB40 PO; -BENA5TAB6 PO; +MECL-299 MT; +MOME13HF12 INH; -MOME13HF2 INH; -OMEP20TA2 PO; +OMEP20TA23 PO
[2023-06-16 13:53] VITALS: BP 134/79; PULSE 100; RESP 20; TEMP 98.7; O2SAT 97
== END 2023-06-16 15:21 | disposition left against medical advice (07) ==
LOC: ER 13:36 → CANBEDREQ 15:04 → ER 15:21
DX: R42 Dizziness and giddiness (principal); R51.9 Headache, unspecified; I10 Essential (primary) hypertension; E78.00 Pure hypercholesterolemia, unspecified; E11.9 Type 2 diabetes mellitus without complications; J45.909 Unspecified asthma, uncomplicated; Z79.82 Long term (current) use of aspirin; Z79.899 Other long term (current) drug therapy
CPT/HCPCS: 99281; Z7610

== ENCOUNTER 2023-06-18 09:43 | Emergency (ER) | payer MEDICAID ==
[~2023-06-18] VITALS: Ht 167.6 cm; Wt 108.0 kg
[2023-06-18 09:51] VITALS: BP 157/72; PULSE 93; RESP 18; TEMP 98; O2SAT 95
== END 2023-06-18 12:45 | disposition home or self-care (01) ==
LOC: ER 09:43
DX: R42 Dizziness and giddiness (principal); E78.00 Pure hypercholesterolemia, unspecified; E11.9 Type 2 diabetes mellitus without complications; J45.909 Unspecified asthma, uncomplicated; Z79.82 Long term (current) use of aspirin; Z79.4 Long term (current) use of insulin; Z79.899 Other long term (current) drug therapy; Z98.890 Other specified postprocedural states; Z98.51 Tubal ligation status
CPT/HCPCS: 99281

== ENCOUNTER 2024-12-31 20:11 | Emergency (ER) | payer OTHER ==
[~2024-12-31] VITALS: Ht 162.6 cm; Wt 118.3 kg
[2024-12-31 20:48] VITALS: O2SAT 98
[2024-12-31 20:51] VITALS: TEMP 36.6
[2024-12-31] MEDS ORDERED: BO1 TP (21:54)
[2024-12-31] MEDS ORDERED: ACET-2708 MT (21:54)
[2024-12-31 22:01] VITALS: BP 131/52; PULSE 90; RESP 15; O2SAT 100
[2024-12-31] MEDS: ACETAMINOPHEN 500MG TABLET PO ONE (22:04)
== END 2024-12-31 22:04 | disposition home or self-care (01) ==
LOC: ER 20:23
DX: S90.32XA Contusion of left foot, initial encounter (principal); E11.9 Type 2 diabetes mellitus without complications; E78.00 Pure hypercholesterolemia, unspecified; J45.909 Unspecified asthma, uncomplicated; Z79.4 Long term (current) use of insulin; Z79.51 Long term (current) use of inhaled steroids; Z79.82 Long term (current) use of aspirin; Z79.899 Other long term (current) drug therapy; Z98.51 Tubal ligation status; W20.8XXA Other cause of strike by thrown, projected or falling object, initial encounter; Y93.89 Activity, other specified; Y92.89 Other specified places as the place of occurrence of the external cause; Y99.8 Other external cause status
CPT/HCPCS: 73630; 99283